=== PATIENT | female | born 1945 | race Caucasian/White ===

== ENCOUNTER → 2017-01-23 | Outpatient (CLI) | payer MEDICARE, OTHER ==
--- NOTE | 2017-01-23 15:32 | REPMRS ---
Patient History The patient states she had a clinical breast exam in December 2016. Patient is postmenopausal and has history of other cancer at age 53. No known family history of cancer. Took unspecified hormones for 1 month. Digital Mammo Screening Bilat: January 23, 2017 - Exam #: [id number] Bilateral CC and MLO view(s) were taken. Technologist: Fallon Joyner, Technologist Prior study comparison: December 31, 2015, bilateral digital mammo screening bilat performed at [facility]. December 15, 2014, bilateral digital mammo screening bilat performed at [facility]. October 25, 2013, bilateral digital mammo screening bilat performed at [facility]. FINDINGS: There are scattered fibroglandular densities. There has been no change in the appearance of the mammogram from the prior studies. There is a mild amount of scattered fibroglandular density which is fairly symmetric. There is no interval development of dominant mass, architectural distortion, or clustered microcalcification suggestive of malignancy. ASSESSMENT: BI-RADS/ACR category 1 mammogram. Negative. Recommendation Routine screening mammogram in 1 year (for women over age 40). This mammogram was interpreted with the aid of an FDA-approved computer-aided dectection system. Electronically Signed By: Solomon Garcia MD 01/23/17 [id number]
== END ==
LOC: M RAD 13:17
PROVIDERS: ATTEND Obstetrics & Gynecology
DX: Z12.31 Encounter for screening mammogram for malignant neoplasm of breast (principal); Z78.0 Asymptomatic menopausal state

== ENCOUNTER → 2018-01-26 | Outpatient (CLI) | payer MEDICARE, OTHER | LOC: M RAD 10:30 | DX: Z12.31 Encounter for screening mammogram for malignant neoplasm of breast (principal); Z78.0 Asymptomatic menopausal state; Z92.29 Personal history of other drug therapy | CPT/HCPCS: 77067 ==

== ENCOUNTER → 2019-01-28 | Outpatient (CLI) | payer MEDICARE, OTHER ==
--- NOTE | 2019-01-28 11:40 | REPMRS ---
Patient History The patient states she had a clinical breast exam in December 2018. No known family history of cancer. Took unspecified hormones for 1 month. Digital Mammo Screening Bilat: January 28, 2019 - Exam #: [id number] Bilateral CC and MLO view(s) were taken. Technologist: Melissa Johnston, Technologist Prior study comparison: January 26, 2018, bilateral digital mammo screening bilat performed at [facility]. January 23, 2017, bilateral digital mammo screening bilat performed at [facility]. December 31, 2015, bilateral digital mammo screening bilat performed at [facility]. FINDINGS: There are scattered fibroglandular densities. There has been no change in the appearance of the mammogram from the prior studies. There is a mild amount of scattered fibroglandular density which is fairly symmetric. There is no interval development of dominant mass, architectural distortion, or clustered microcalcification suggestive of malignancy. 3-D tomosynthesis shows no additional findings. Assessment: BI-RADS/ACR category 1 mammogram. Negative Mammogram. Recommendation Routine screening mammogram of both breasts in 1 year (for women over age 40). This patient's Lifetime Breast Cancer RIsk is estimated at 3.8 %. This mammogram was interpreted with the aid of an FDA-approved computer-aided dectection system. Electronically Signed By: Solomon Garcia MD 01/28/19 [id number]
== END ==
LOC: M RAD 11:02
PROVIDERS: ATTEND Obstetrics & Gynecology
DX: Z12.31 Encounter for screening mammogram for malignant neoplasm of breast (principal)

== ENCOUNTER → 2019-02-22 | Outpatient (REF) | payer MEDICARE, OTHER ==
[2019-02-22 13:04] LABS: HEMATOCRIT 42.6 % (36.0-47.0); HEMOGLOBIN 13.7 g/dl (12.0-15.5); MEAN CORPUSCULAR HGB CONC 32.2 g/dl (32.0-36.5); MEAN CORPUSCULAR VOLUME 93.4 fl (80.0-96.0); PLATELET COUNT, AUTOMATED 218 10^3/uL (150-450); RED BLOOD COUNT 4.56 10^6/uL (4.00-5.40); WHITE BLOOD COUNT 2.7 10^3/uL (4.0-10.0)
[2019-02-22 13:39] LABS: ALBUMIN 3.9 GM/DL (3.2-5.2); ALT/SGPT 34 U/L (12-78); BLOOD UREA NITROGEN 13 MG/DL (7-18); CALCIUM LEVEL 9.5 MG/DL (8.8-10.2); CARBON DIOXIDE LEVEL 31 MEQ/L (21-32); CHLORIDE LEVEL 100 MEQ/L (98-107); CHOLESTEROL LEVEL 194 MG/DL (<200); CHOLESTEROL RISK RATIO 2.131 (<5); CREATININE FOR GFR 0.64 MG/DL (0.55-1.30); GLOMERULAR FILTRATION RATE > 60.0 (>39); GLUCOSE, FASTING 84 MG/DL (70-100); HDL CHOLESTEROL 91 MG/DL (>40); LDL CHOLESTEROL 91 MG/DL (<100); NON-HDL-C 103 MG/DL; POTASSIUM SERUM 4.3 MEQ/L (3.5-5.1); SODIUM LEVEL 137 MEQ/L (136-145); TOTAL 25(OH) VITAMIN D 25.1 NG/ML (30.0-100.0); TOTAL PROTEIN 7.2 GM/DL (6.4-8.2); TRIGLYCERIDES LEVEL 58 MG/DL (<150)
== END ==
LOC: M SFHCPLAZ 08:35
PROVIDERS: ATTEND Internal Medicine
DX: R74.8 Abnormal levels of other serum enzymes (principal); E78.5 Hyperlipidemia, unspecified; I49.9 Cardiac arrhythmia, unspecified; E55.9 Vitamin D deficiency, unspecified

== ENCOUNTER → 2019-04-22 | Outpatient (CLI) | payer MEDICARE, OTHER ==
--- NOTE | 2019-04-22 13:21 | REP ---
Right foot: Two views limited study. History: Right foot pain. No comparison views. Findings: There is a moderate to marked hallux valgus with some soft tissue swelling at the first MTP joint. There is Achilles and plantar calcaneal spurring. The talonavicular spurring and midfoot spurring is seen consistent with midfoot osteoarthritis. There is diffuse osteopenia. No erosive changes seen. No fracture is noted. Impression: Diffuse osteopenia. Moderate to marked hallux valgus. Midfoot osteoarthritic spurring and heel spurring. Electronically Signed by Triston Garcia MD 04/22/2019 01:29 P
== END ==
LOC: M WUC 10:22
PROVIDERS: ATTEND Nurse Practitioner Adult Health
DX: M85.80 Other specified disorders of bone density and structure, unspecified site (principal); M20.11 Hallux valgus (acquired), right foot; M77.31 Calcaneal spur, right foot

== ENCOUNTER → 2019-07-15 | Outpatient (REF) | payer MEDICARE, OTHER ==
[2019-07-19 14:40] LABS: BORDETELLA PARAPERTUSSIS PCR Negative (Negative); BORDETELLA PERTUSSIS BY PCR Negative (Negative)
== END ==
LOC: M SFHCPLAZ 12:56
PROVIDERS: ATTEND Nurse Practitioner Family
DX: R05 Cough (principal)
CPT/HCPCS: 87798; 87804; G0463

== ENCOUNTER → 2019-07-20 | Outpatient (CLI) | payer MEDICARE, OTHER ==
--- NOTE | 2019-07-20 12:36 | REP ---
Two-view chest: 07/20/2019. Indication: Fever. Cough. Comparison: None. Findings: The lungs are clear. There is no significant pleural fluid. There is no pneumothorax. Significant rotoscoliosis of the thoracolumbar spine is present. Cardiac silhouette is unremarkable. Impression: Clear lungs. Electronically Signed by James Knight DO 07/20/2019 12:27 P
== END ==
LOC: M RAD 10:59
PROVIDERS: ATTEND Internal Medicine
DX: M41.35 Thoracogenic scoliosis, thoracolumbar region (principal); R50.81 Fever presenting with conditions classified elsewhere

== ENCOUNTER → 2019-08-31 | Outpatient (REF) | payer MEDICARE, OTHER ==
[2019-08-31 11:43] LABS: ALBUMIN 3.6 GM/DL (3.2-5.2); ALT/SGPT 38 U/L (12-78); BILIRUBIN,TOTAL 0.9 MG/DL (0.2-1.0); BLOOD UREA NITROGEN 12 MG/DL (7-18); CARBON DIOXIDE LEVEL 32 MEQ/L (21-32); CHLORIDE LEVEL 99 MEQ/L (98-107); CREATININE FOR GFR 0.69 MG/DL (0.55-1.30); GLOMERULAR FILTRATION RATE > 60.0 (>39); GLUCOSE, FASTING 87 MG/DL (70-100); POTASSIUM SERUM 3.9 MEQ/L (3.5-5.1); SODIUM LEVEL 137 MEQ/L (136-145); TOTAL PROTEIN 6.9 GM/DL (6.4-8.2)
[2019-08-31 11:45] LABS: TOTAL 25(OH) VITAMIN D 35.4 NG/ML (30.0-100.0)
== END ==
LOC: M SFHCPLAZ 07:53
PROVIDERS: ATTEND Internal Medicine
DX: R74.8 Abnormal levels of other serum enzymes (principal); E55.9 Vitamin D deficiency, unspecified

== ENCOUNTER 2019-11-24 10:28 | Day surgery (SDC) | payer MEDICARE, OTHER ==
[~2019-11-24] VITALS: Ht 154.9 cm; Wt 60.3 kg
[~2019-11-24 10:28] MED LIST: BIOT1CAP2 PO; LIDOCAINE 1% MDV 20ML VIAL SQ PRN; LUTE2000 PO; MULTCAP PO; POVIDONE-IODINE 5% OPHTH PREP SOL 30ML As Ordered ONE; SM F10002 PO; SM G150T PO; TOBRAMYCIN INJ 80 MG/2 ML VIAL (J3260) As Ordered ONE; VITA200028 PO
[2019-11-24] MEDS ORDERED: fentaNYL 100 MCG/2 ML INJECTION (J3010) As Ordered ONE (11:12)
[2019-11-24] MEDS ORDERED: MIDAZOLAM INJ 2 MG/2 ML VIAL (J2250) As Ordered ONE (11:12)
[2019-11-24] MEDS ORDERED: mitoMYcin 0.2 MG/VIAL KIT FOR OPHTHALMIC USE (J7315 PER 0.2MG) As Ordered ONE (13:09)
[2019-11-24] MEDS: LIDOCAINE 2% W/EPIN INJ 20ML **PRES FREE As Ordered ONE (13:21)
[2019-11-24 14:20] VITALS: BP 167/89
--- NOTE | 2019-11-25 22:23 | RO ---
DATE OF PROCEDURE: 11/24/2019 PREPROCEDURE DIAGNOSIS: Pterygium of the right eye. POSTPROCEDURE DIAGNOSIS: Pterygium of the right eye. PROCEDURE: Excision of pterygium right eye with the use of mitomycin C, Tisseel glue and cryopreserved amniotic membrane graft. SURGEON: Dr. Ricardo Lucero [employer] PROJECT MANAGER: ANESTHESIA: 1% lidocaine with epinephrine and local with MAC sedation. DESCRIPTION OF PROCEDURE: The patient was seen and identified in the preoperative area. The consent was reviewed and the surgical eye was marked. The patient was then transferred to the operating room. The eye was prepped and draped in a sterile fashion. Tegaderm was used to isolate the upper and lower eyelid and a wire lid speculum was placed. 1% lidocaine with epinephrine was injected into the subconjunctival space, approximately 0.5 mL were used. The subconjunctival anesthesia was then spread using a cotton-tipped applicator. Using sharp tip Yisel forceps and 0.12 sharp tip Yisel scissors and a 0.12 forceps, the head of the pterygium was excised from the nasal corneal limbus and then sent to pathology. The incision was then carried further posterior for approximately 4 mm, removing additional pterygium tissue. There was mild bleeding and gentle Wet-Field cautery was performed. Any visible Tenon's capsule was excised using 0.12 forceps and Yisel scissors and was discarded. The defect was then measured to be approximately 5 x 7 mm, which was confirmed by measurement with calipers. Mitomycin C was prepared at the back table using standard precautions, 0.2 mg were prepared in a 1 mL syringe. 0.01 mL of mitomycin C was injected using a 30-gauge needle into the conjunctival edge. This was vigorously washed away with three bottles of BSS. At that time, the area was dried. The amniotic membrane graft was brought near the patient's eye and sized to appropriate 5 x 7 mm using scissors. The graft was laid down over the corneal surface. Tisseel was prepared and then placed over the exposed scleral bed. The graft was then placed over the area, and then gentle smoothing motions were performed to squeeze the Tisseel glue from the graft, allowing appropriate adhesion. Tissue tuck technique was performed at all edges of the amniotic membrane graft until the graft was in position. The graft was then gently lifted at the corneal limbus and a small amount was excised. Any additional excessive glue was excised using scissors and forceps. The patient tolerated the procedure well. A bandage contact lens was placed, and the wire lid speculum was removed. The patient was then discharged to the post-anesthesia care unit (PACU) in a stable condition.
== END 2019-11-24 14:20 | disposition home or self-care (01) ==
LOC: M SDC 10:28
PROVIDERS: ATTEND Ophthalmology
DX: H11.001 Unspecified pterygium of right eye (principal); F41.9 Anxiety disorder, unspecified; Z88.0 Allergy status to penicillin; Z91.018 Allergy to other foods; Z79.899 Other long term (current) drug therapy
CPT/HCPCS: 65426; 88304; A6024; C1762; J2250; J3010; J3260; J7315

== ENCOUNTER → 2021-10-14 | Outpatient (REF) | payer MEDICARE, OTHER ==
[~2021-10-14] MED LIST changes: -LIDOCAINE 1% MDV 20ML VIAL SQ PRN; -POVIDONE-IODINE 5% OPHTH PREP SOL 30ML As Ordered ONE; -TOBRAMYCIN INJ 80 MG/2 ML VIAL (J3260) As Ordered ONE
== END ==
LOC: M LAB REF 13:54
PROVIDERS: ATTEND Nurse Practitioner Family
DX: L82.1 Other seborrheic keratosis (principal)
CPT/HCPCS: 11102; 11103; 17000; 17003; 88305; G0463

== ENCOUNTER 2021-12-19 11:27 | Emergency (ER) | payer MEDICARE, OTHER ==
[~2021-12-19] VITALS: Ht 154.9 cm; Wt 59.1 kg
[2021-12-19 12:01] LABS: BASO # 0.1 10^3/uL (0.0-0.2); BASO % 1.2 % (0.0-1.0); EOS % 0.4 % (0.0-3.0); HEMATOCRIT 42.2 % (36.0-47.0); HEMOGLOBIN 13.7 g/dl (12.0-15.5); LYMPH # 0.8 10^3/uL (1.5-5.0); LYMPH % 16.1 % (24.0-44.0); MEAN CORPUSCULAR HEMOGLOBIN 29.8 pg (27.0-33.0); MEAN CORPUSCULAR HGB CONC 32.5 g/dl (32.0-36.5); MEAN CORPUSCULAR VOLUME 91.7 fl (80.0-96.0); MONO # 0.4 10^3/uL (0.0-0.8); MONO % 8.7 % (2.0-8.0); NEUTROPHILS # 3.5 10^3/uL (1.5-8.5); NEUTROPHILS % 73.4 % (36.0-66.0); PLATELET COUNT, AUTOMATED 271 10^3/uL (150-450); WHITE BLOOD COUNT 4.8 10^3/uL (4.0-10.0)
[2021-12-19 12:35] LABS: BLOOD UREA NITROGEN 14 MG/DL (7-18); CALCIUM LEVEL 9.9 MG/DL (8.8-10.2); CARBON DIOXIDE LEVEL 30 MEQ/L (21-32); CHLORIDE LEVEL 97 MEQ/L (98-107); CREATININE FOR GFR 0.71 MG/DL (0.55-1.30); GLOMERULAR FILTRATION RATE > 60.0 (>39); GLUCOSE, FASTING 106 MG/DL (70-100); POTASSIUM SERUM 4.1 MEQ/L (3.5-5.1); SODIUM LEVEL 134 MEQ/L (136-145)
[2021-12-19 14:13] LABS: CK-MB VALUE MASS < 1.0 NG/ML (<3.6); CPK CREATINE PHOSPHOKINASE 58 U/L (26-192); MB/CK RELATIVE INDEX 1.72 (< OR =4)
[2021-12-19 14:15] VITALS: BP 146/73
== END 2021-12-19 15:25 | disposition home or self-care (01) ==
LOC: M ED 11:27
DX: R07.9 Chest pain, unspecified (principal); J98.9 Respiratory disorder, unspecified; J45.909 Unspecified asthma, uncomplicated; Z86.79 Personal history of other diseases of the circulatory system; Z79.899 Other long term (current) drug therapy; Z88.0 Allergy status to penicillin; Z91.018 Allergy to other foods

== ENCOUNTER → 2022-05-28 | Outpatient (REF) | payer MEDICARE, OTHER | LOC: M SFHCPLAZ 17:03 | PROVIDERS: ATTEND Physician Assistant | DX: R09.81 Nasal congestion (principal) ==

== ENCOUNTER → 2022-07-23 | Outpatient (REF) | payer MEDICARE, OTHER | LOC: M LAB REF 12:51 | PROVIDERS: ATTEND Internal Medicine | DX: R74.01 Elevation of levels of liver transaminase levels (principal) ==

== ENCOUNTER → 2022-10-13 | Outpatient (CLI) | payer MEDICARE, OTHER ==
[~2022-10-13] MED LIST changes: +ISOVUE-300 61% 50ML VIAL ONE; +LIDOCAINE 1% MDV 20ML VIAL ONE; +TRIAMCINOLONE ACETONIDE SUSP 40MG/ML 1ML VIAL ONE
== END ==
LOC: M PLAIMG 12:25
PROVIDERS: ATTEND Orthopaedic Surgery
DX: M16.11 Unilateral primary osteoarthritis, right hip (principal)
CPT/HCPCS: 20610; 76000; Q9967

== ENCOUNTER → 2022-12-23 | Outpatient (REF) | payer MEDICARE, OTHER ==
[~2022-12-23] MED LIST changes: -ISOVUE-300 61% 50ML VIAL ONE; -LIDOCAINE 1% MDV 20ML VIAL ONE; -TRIAMCINOLONE ACETONIDE SUSP 40MG/ML 1ML VIAL ONE
[2022-12-23 19:19] LABS: PTH INTACT 49.6 PG/ML (18.5-88.0)
[2022-12-23 20:10] LABS: % LABILE ALKALINE PHOSPHATASE 57.5 %
== END ==
LOC: M LAB REF 16:39
PROVIDERS: ATTEND Internal Medicine
DX: R74.01 Elevation of levels of liver transaminase levels (principal)

== ENCOUNTER 2023-05-25 06:23 | Outpatient (CLI) | payer MEDICARE, OTHER ==
[~2023-05-25] VITALS: Ht 152.4 cm; Wt 58.6 kg
[2023-05-25 07:00] VITALS: BP 158/82; O2SAT 98
[2023-05-25] MEDS ORDERED: COSYNTROPIN 0.25 MG/ML 1ML VIAL IV SCH ×2 (07:00→08:00)
[2023-05-25 08:25] VITALS: BP 148/72; O2SAT 100
== END 2023-05-25 08:25 | disposition home or self-care (01) ==
LOC: M INFU 06:23
PROVIDERS: ATTEND Physician Assistant Medical
DX: R74.01 Elevation of levels of liver transaminase levels (principal); Z88.0 Allergy status to penicillin; Z91.048 Other nonmedicinal substance allergy status
CPT/HCPCS: 82533; 96374; J0834